=== PATIENT | male | born 1980 | race Caucasian/White ===

== ENCOUNTER 2017-04-07 23:03 | Emergency (ER) | payer OTHER ==
[~2017-04-07] VITALS: Ht 175.3 cm; Wt 72.6 kg
--- NOTE | 2017-04-07 23:16 | NUR ---
CALLED PT IN [place], NO REPONSE
[2017-04-08 00:13] VITALS: BP 116/75
--- NOTE | 2017-04-08 00:23 | NUR ---
shelli chaudhari at bedside to darin vanessa.
[2017-04-08] MEDS ORDERED: CEPHALEXIN MONOHYDRATE 500 MG CAPSULE PO ONE ×2 (01:30→01:35)
[2017-04-08] MEDS ORDERED: SULFAMETH/TRIMETH 800/160 MG 1 UDTAB TABLET PO ONE ×2 (01:30→01:36)
--- NOTE | 2017-04-08 01:52 | NUR ---
pt refuse aci, pt became verbally abusive, requesting narcotic medicine and acyclovir. pt cursing at me. pt left without aci.
== END 2017-04-08 01:56 | disposition home or self-care (01) ==
LOC: ER 23:04
DX: L63.9 Alopecia areata, unspecified (principal); F17.200 Nicotine dependence, unspecified, uncomplicated; F41.9 Anxiety disorder, unspecified
CPT/HCPCS: A4606; Z7610

== ENCOUNTER 2022-01-30 01:05 | Emergency (ER) | payer OTHER ==
[~2022-01-30] VITALS: Ht 177.8 cm; Wt 70.3 kg
[2022-01-30 01:44] VITALS: BP 131/81
--- NOTE | 2022-01-30 02:08 | NUR ---
Patient eloped from facility. ER MD notified.
== END 2022-01-30 02:33 | disposition left against medical advice (07) ==
LOC: ER 01:07
DX: Z53.21 Procedure and treatment not carried out due to patient leaving prior to being seen by health care provider (principal)

== ENCOUNTER 2022-08-22 09:48 | Emergency (ER) | payer OTHER ==
--- NOTE | 2022-08-22 10:02 | NUR ---
pt came to the er to get dna testing on his jacket, states that he did not want to be traiged because we do not have sane nurse. dr patton aware.
== END 2022-08-22 10:03 | disposition left against medical advice (07) ==
LOC: ER 09:53
DX: Z53.21 Procedure and treatment not carried out due to patient leaving prior to being seen by health care provider (principal)

== ENCOUNTER 2022-09-18 05:55 | Emergency (ER) | payer OTHER ==
[~2022-09-18] VITALS: Ht 177.8 cm; Wt 65.8 kg
[2022-09-18 05:57] VITALS: BP 140/72
--- NOTE | 2022-09-18 06:03 | NUR ---
[email or web address], c/o L rib pain and back pain s/p tripped and fall, no loc 03/08 ps.
--- NOTE | 2022-09-18 06:06 | NUR ---
Dr. Jeffery at bedside.
[2022-09-18] MEDS ORDERED: IBUPROFEN 600 MG TABLET ONE (06:46)
[2022-09-18] MEDS ORDERED: IBUPROFEN 600 MG TABLET PO ONE (07:00)
== END 2022-09-18 07:13 | disposition home or self-care (01) ==
LOC: ER 05:56
DX: M54.50 Low back pain, unspecified (principal); F17.200 Nicotine dependence, unspecified, uncomplicated
CPT/HCPCS: 72110-TC